=== PATIENT | male | born 1990 | race Caucasian/White ===

== ENCOUNTER → 2020-05-17 | Outpatient (CLI) | payer OTHER ==
--- NOTE | 2020-05-17 16:45 | XR ---
EXAMINATION TYPE: XR humerus RT DATE OF EXAM: 05/17/2020 COMPARISON: None HISTORY: Pain in elbow TECHNIQUE: Two-view right humerus FINDINGS: No acute fracture or dislocation is evident. Soft tissues are normal. Follow-up exams can be performed 7-10 days from acute trauma for continued pain. IMPRESSION: 1. Normal 2 view right humerus.
--- NOTE | 2020-05-17 16:46 | XR ---
EXAMINATION TYPE: XR hand complete RT DATE OF EXAM: 05/17/2020 COMPARISON: None HISTORY: Pain following lifting TECHNIQUE: Three-view right hand FINDINGS: No acute fractures or dislocations are evident. The soft tissues are normal. Joint spaces a re preserved. Follow-up exams can be performed 7-10 days from acute trauma for continued pain. IMPRESSION: 1. Normal three-view right hand
--- NOTE | 2020-05-17 16:47 | XR ---
EXAMINATION TYPE: XR forearm RT DATE OF EXAM: 05/17/2020 COMPARISON: None HISTORY: Pain following lifting TECHNIQUE: 2 view right forearm FINDINGS: No acute fractures or dislocations are evident. Joint spaces are preserved. Anterior fat pa d is normal. Radius aligns normally humerus. Follow-up exams can be performed 7-10 days from acute trauma for continued pain. IMPRESSION: 1. No acute osseous abnormality right forearm.
== END | disposition home or self-care (01) ==
LOC: RAD 16:18
PROVIDERS: ATTEND Emergency Medicine
DX: M25.521 Pain in right elbow (principal); M25.531 Pain in right wrist

== ENCOUNTER → 2020-05-26 | Outpatient (CLI) | payer OTHER ==
--- NOTE | 2020-05-26 09:28 | MR ---
MRI right elbow HISTORY: Right elbow pain and swelling Multiplanar multisequence imaging through the right elbow Correlation to plain film from outside institution 05/17/2020 Bone marrow signal is maintained. There is no evident joint effusion. Triceps tendon shows a normal i nsertion. Biceps tendon shows some abnormal increased signal within its substance, some local fluid, T2 bright signal at the level of its insertion. Common extensor tendon, common flexor tendon are inta ct. Muscle signal is normal. No subcutaneous edema evident. IMPRESSION: Findings suggest strain of the insertion of the biceps tendon versus possible partial tea r
== END | disposition home or self-care (01) ==
LOC: RADMRIMAIN 07:31
PROVIDERS: ATTEND Orthopaedic Surgery
DX: M25.521 Pain in right elbow (principal); M25.531 Pain in right wrist

== ENCOUNTER → 2020-05-27 | Outpatient (CLI) | payer OTHER ==
--- NOTE | 2020-05-28 21:07 | MR ---
EXAMINATION TYPE: MR wrist RT wo con DATE OF EXAM: 05/27/2020 COMPARISON: NONE HISTORY: 29-year-old male Rt wrist pain/lifting injury TECHNIQUE: Multiplanar, multisequence images of the right wrist were obtained without IV contrast. FINDINGS: The scapholunate and lunotriquetral ligaments appear grossly intact. No wrist joint effusion. No evidence for acute or healing fracture. TFC appears intact. However, there is diffuse synovial thickening along the mesial at the distal uln a and a umer longitudinal split tear at and beyond the ulnar styloid process. No abnormal tendon sub luxation is seen. Otherwise, dorsal extensor and flexor tendons appear intact. Median nerve appears normal caliber. No suspicious bone marrow replacement or marrow edema. IMPRESSION: A longitudinal split tear of the ECU beginning at the level of the ulnar styloid process and extendin g distally. Associated mild to moderate tenosynovitis. No tendon subluxation to suggest ECU subsheath tear.
== END | disposition home or self-care (01) ==
LOC: RADMRIMAIN 11:15
PROVIDERS: ATTEND Orthopaedic Surgery
DX: S53.31XA Traumatic rupture of right ulnar collateral ligament, initial encounter (principal); M65.9 Synovitis and tenosynovitis, unspecified; M25.531 Pain in right wrist